=== PATIENT | female | born 1965 | race Caucasian/White ===

== ENCOUNTER 2016-11-26 13:23 | Emergency (ER) | payer BC ==
[~2016-11-26] VITALS: Ht 170.2 cm; Wt 65.7 kg
[~2016-11-26 13:23] MED LIST: GABA1CAP4 PO
[2016-11-26 13:27] VITALS: TEMP 36.9; Ht 170.2 cm; Wt 65.7 kg
[2016-11-26] MEDS ORDERED: SODIUM CHLORIDE 0.9% 1000ML 1,000 ML IV STA (14:54)
[2016-11-26] MEDS ORDERED: GI COCKTAIL PO STA (14:54)
[2016-11-26] MEDS ORDERED: METOCLOPRAMIDE HCL INJ 5 MG/ML 2 ML VIAL IV STA (14:54)
[2016-11-26] MEDS ORDERED: SUCRALFATE 1 GM TAB PO STA (14:54)
[2016-11-26] MEDS ORDERED: FAMOTIDINE 20 MG TAB PO STA (14:54)
--- NOTE | 2016-11-26 14:57 | EMERGENCY ROOM VISIT NOTE ---
History Report prepared by Jasonibguanako: Radha Steh Under the Supervision of: Dr. Velasquez Veliz M.D. First contact with patient: 14:40 Chief Complaint: ABDOMINAL PAIN Stated Complaint: APPENDICITIS Nursing Triage Summary: abdominal cramping with increased pain as the day goes on. Pain is in the umbilical area and some times goes towards the hips. she states" the pressure feels like every thing is going to fall out". no vomiting poor appetite and when she does eat she gets nauseated. History of Present Illness The patient is a 51 year old female who presents to the Emergency Room with complaints of worsening constant abdominal pain beginning 5 days prior to arrival. The patient states that the pain begins in the umbilical area and radiates upward and laterally. She describes the pain as a dull constant pain. The pain worsens as the day goes on. She is experiencing decreased appetite and nausea. She has normal bowel movements. The patient denies vomiting or previous abdominal surgeries. She smokes about 1 pack a day. Source of History: patient Onset: 5 days [employer] Position: abdomen (umbilical) Quality: dull Timing: constant, worsening Associated Symptoms: + nausea, No vomiting Note: The patient is having normal bowel movements and decreased appetite. Review of Systems See HPI for pertinent positives & negatives. A total of 10 systems reviewed and were otherwise negative. Past Medical & Surgical Medical Problems: (1) No known health problems Family History Cancer Diabetes mellitus Gallbladder disease Heart disease Hypertension Kidney disease Kidney stones Lung disease Social History Smoking Status: Current Every Day Smoker Alcohol Use: occasionally Drug Use: none Marital Status: Housing Status: lives with family Occupation Status: employed Current/Historical Medications Scheduled Famotidine (Pepcid), 40 MG PO HS Sulfa/Trimethoprim (Bactrim Ds 800MG/160MG), 1 TAB PO BID Allergies Coded Allergies: Amoxicillin (Unverified Allergy, Intermediate, HIVES, 11/26/16) Penicillins (Verified Allergy, Unknown, HIVES, SWELLING OF FACE AND NECK, 11/26/16) Physical Exam Vital Signs Date Time Temp Pulse Resp B/P (MAP) Pulse Ox O2 Delivery O2 Flow Rate FiO2 11/26/16 18:12 71 18 110/67 97 11/26/16 15:45 98 Room Air 11/26/16 15:41 89 18 129/53 98 Room Air 11/26/16 13:27 36.9 99 18 129/90 96 Room Air Physical Exam GENERAL: Patient is a healthy-appearing well-nourished female HEAD: Normocephalic atraumatic EYES: Ocular movements intact pupils equal and react to light OROPHARYNX mucous membranes are moist no exudates present no erythema or edema present NECK: Supple no nuchal rigidity CHEST: Good equal expansion LUNGS: Clear and equal to auscultation CARDIAC: Normal S1 and S2 ABDOMEN: Soft, tender in right upper quadrant and left upper quadrant, no guarding BACK: No CVA tenderness EXTREMITIES: No pain upon palpation normal muscle strength in all groups no clubbing cyanosis or edema NEURO: Patient is following commands and answering questions appropriately. Alert and oriented x3 Cranial Nerves 2-12 grossly intact Medical Decision & Procedures ER Provider Diagnostic Interpretation: Radiology results as stated below per my review and radiologist interpretation: CHEST ONE VIEW PORTABLE CLINICAL HISTORY: Atypical chest pain COMPARISON STUDY: 01/15/2015 FINDINGS: The cardiac and mediastinal contours are normal. There is no evidence of focal pulmonary consolidation. There is no evidence of failure. No pleural effusions are visualized.[ IMPRESSION: No active disease in the chest. Electronically signed by: Prashant Saab M.D. 11/26/2016 3:28 PM Dictated Date/Time: 11/26/2016 3:27 PM ABDOMEN AND PELVIS CT WITH IV AND ORAL CONTRAST CT DOSE: 274.57 mGy.cm HISTORY: Pain. Nausea. Pt c/o RUQ abd pain TECHNIQUE: Multiaxial CT images of the abdomen and pelvis were performed following the use of intravenous and oral contrast. COMPARISON STUDY: None. FINDINGS: The lung bases are clear. The liver, spleen, gallbladder, pancreas, kidneys, and adrenal glands are within normal limits. No bowel wall thickening or obstruction. The pelvic organs are unremarkable. No suspicious lytic or blastic osseous lesions. IMPRESSION: No significant abnormality identified within the abdomen or pelvis. Electronically signed by: Alejo Nicole M.D. 11/26/2016 5:59 PM Dictated Date/Time: 11/26/2016 5:55 PM ABDOMINAL ULTRASOUND, RIGHT UPPER QUADRANT HISTORY: Pain. Nausea. Pt c/o RUq abd pain. COMPARISON: None. FINDINGS: Pancreas: The pancreas demonstrates a normal echotexture. Liver: Unremarkable. Gallbladder: No gallbladder wall thickening. No gallstones. CBD: 4 mm Right kidney: No hydronephrosis. IMPRESSION: No significant abnormality identified within the within the right upper quadrant. Electronically signed by: Alejo Nicole M.D. 11/26/2016 4:20 PM Dictated Date/Time: 11/26/2016 4:19 PM Laboratory Results 11/26/16 14:45 Red Blood Count 4.98, Mean Corpuscular Volume 94.0, Mean Corpuscular Hemoglobin 31.7, Mean Corpuscular Hemoglobin Concent 33.8, Mean Platelet Volume 11.3, Neutrophils (%) (Auto) 71.7, Lymphocytes (%) (Auto) 20.0, Monocytes (%) (Auto) 6.1, Eosinophils (%) (Auto) 1.8, Basophils (%) (Auto) 0.2, Neutrophils # (Auto) 7.06, Lymphocytes # (Auto) 1.97, Monocytes # (Auto) 0.60, Eosinophils # (Auto) 0.18, Basophils # (Auto) 0.02 11/26/16 14:45 Test 11/26/16 14:45 11/26/16 15:00 White Blood Count 9.85 K/uL (4.8-10.8) Red Blood Count 4.98 M/uL (4.2-5.4) Hemoglobin 15.8 g/dL (12.0-16.0) Hematocrit 46.8 % (37-47) Mean Corpuscular Volume 94.0 fL (80-100) Mean Corpuscular Hemoglobin 31.7 pg (25-34) Mean Corpuscular Hemoglobin Concent 33.8 g/dl (32-36) Platelet Count 202 K/uL (130-400) Mean Platelet Volume 11.3 fL (7.4-10.4) Neutrophils (%) (Auto) 71.7 % Lymphocytes (%) (Auto) 20.0 % Monocytes (%) (Auto) 6.1 % Eosinophils (%) (Auto) 1.8 % Basophils (%) (Auto) 0.2 % Neutrophils # (Auto) 7.06 K/uL (1.4-6.5) Lymphocytes # (Auto) 1.97 K/uL (1.2-3.4) Monocytes # (Auto) 0.60 K/uL (0.11-0.59) Eosinophils # (Auto) 0.18 K/uL (0-0.5) Basophils # (Auto) 0.02 K/uL (0-0.2) RDW Standard Deviation 43.4 fL (36.4-46.3) RDW Coefficient of Variation 12.7 % (11.5-14.5) Immature Granulocyte % (Auto) 0.2 % Immature Granulocyte # (Auto) 0.02 K/uL (0.00-0.02) Anion Gap 9.0 mmol/L (3-11) Est Creatinine Clear Calc Drug Dose 76.2 ml/min Estimated GFR () 92.6 Estimated GFR (Non- 79.9 BUN/Creatinine Ratio 11.3 (10-20) Calcium Level 9.6 mg/dl (8.5-10.1) Total Bilirubin 0.5 mg/dl (0.2-1) Direct Bilirubin 0.1 mg/dl (0-0.2) Aspartate Amino Transf (AST/SGOT) 22 U/L (15-37) Alanine Aminotransferase (ALT/SGPT) 29 U/L (12-78) Alkaline Phosphatase 89 U/L (45-117) Total Creatine Kinase 80 U/L (26-192) Creatine Kinase MB 0.9 ng/ml (0.5-3.6) Creatine Kinase MB Ratio 1.1 (0-3.0) Troponin I < 0.015 ng/ml (0-0.045) Total Protein 8.0 gm/dl (6.4-8.2) Albumin 3.9 gm/dl (3.4-5.0) Lipase 150 U/L (73-393) Urine Color YELLOW Urine Appearance CLEAR (CLEAR) Urine pH 6.0 (4.5-7.5) Urine Specific [place] 1.013 (1.000-1.030) Urine Protein NEG (NEG) Urine Glucose (UA) NEG (NEG) Urine Ketones NEG (NEG) Urine Occult Blood NEG (NEG) Urine Nitrite NEG (NEG) Urine Bilirubin NEG (NEG) Urine Urobilinogen NEG (NEG) Urine Leukocyte Esterase MODERATE (NEG) Urine WBC (Auto) 10-30 /hpf (0-5) Urine RBC (Auto) 0-4 /hpf (0-4) Urine Hyaline Casts (Auto) 1-5 /lpf (0-5) Urine Epithelial Cells (Auto) >30 /lpf (0-5) Urine Bacteria (Auto) 1+ (NEG) Urine Test NEG (NEG) Labs reviewed by ED physician. Medications Administered Medications (Trade) Dose Ordered Sig/Nhung Route Start Time Stop Time Status Last Admin Dose Admin Famotidine (Pepcid Tab) 20 mg NOW STAT PO 11/26/16 14:54 11/26/16 14:57 DC 11/26/16 15:40 20 MG Sucralfate (Carafate Tab) 1 gm NOW STAT PO 11/26/16 14:54 11/26/16 14:57 DC 11/26/16 15:40 1 GM Sodium Chloride 1,000 ml @ 999 mls/hr Q1H1M STAT IV 11/26/16 14:54 11/26/16 15:54 DC 11/26/16 15:41 999 MLS/HR Metoclopramide HCl (Reglan Inj) 10 mg NOW STAT IV 11/26/16 14:54 11/26/16 14:57 DC 11/26/16 15:40 10 MG Al Hydroxide/Mg Hydroxide (Maalox Susp) 30 ml STK-MED ONCE .ROUTE 11/26/16 15:32 11/26/16 15:33 DC 11/26/16 15:41 30 ML Lidocaine HCl (Viscous Lidocaine 2% Soln) 20 ml STK-MED ONCE .ROUTE 11/26/16 15:32 11/26/16 15:33 DC 11/26/16 15:41 20 ML Ceftriaxone Sodium (Rocephin Inj) 1 gm NOW STAT IV 11/26/16 16:22 11/26/16 16:24 DC 11/26/16 16:54 1 GM Trimethoprim/ Sulfamethoxazole (Septra Ds 800/ 160MG Tab) 1 tab NOW STAT PO 11/26/16 16:22 11/26/16 16:24 DC 11/26/16 16:54 1 TAB ECG Indication: abdominal pain Rate (beats per minute): 82 Rhythm: normal sinus Findings: no acute ischemic change, no ectopy ED Course 1450: Past medical records reviewed. The patient was evaluated in room B10. A complete history and physical examination was performed. 1454: Reglan Inj 10 mg IV, Sodium Chloride 1,000 ml @ 999 mls/hr IV, Carafate Tab 1 gm PO, Pepcid Tab 20 mg PO, GI Cocktail 24 ml PO. 1622: Septra Ds 800/ 160 MG Tab 1 tab PO, Rocephin Inj 1 gm IV. 1820: Upon reexamination the patient is hemodynamically stable. I discussed results and treatment plan with the patient. She verbalizes agreement and understanding. The patient is ready for discharge. Medical Decision Differential diagnosis: Etiologies such as appendicitis, diverticulitis, PUD, biliary pathology, UTI, pancreatitis, obstruction, mesenteric ischemia, aortic pathology, infections, inflammatory bowel disease, renal colic, as well as others were entertained. Medication Reconciliation: I attest that I have personally reviewed the patient' s current medication list Blood Pressure Screening: Patient was found to have normal blood pressure on screening and does not require follow up. This is a 51-year-old female who presents emergency department complaining of bilateral upper abdominal pain. Based on the patient's symptoms an EKG was obtained along with CK-MB and troponin fraction. These were all found to be normal. The patient was given a GI cocktail, Pepcid and Carafate. Ultrasound of her gallbladder does not show any acute process. She was sent for CAT scan of the abdomen and pelvis which did not show any acute process. I do believe that the patient is safe enough to be discharged from the emergency department. Serial abdominal examinations were performed on the patient in the emergency department and at no time did the patient exhibit a surgical abdomen. The patient is going to attempt a clear liquid diet for the next 48 hours and I do believe is well enough to be discharged home for follow-up with gastroenterology. She is going to take 5 mL some Maalox before every meal and was written for prescription for Pepcid. Patient was in agreement with the treatment plan. Impression Primary Impression: Abdominal pain Scribe Attestation The scribe's documentation has been prepared under my direction and personally reviewed by me in its entirety. I confirm that the note above accurately reflects all work, treatment, procedures, and medical decision making performed by me. Departure Information Dispostion Home / Self-Care Prescriptions Sulfa/Trimethoprim (Bactrim Ds 800MG/160MG) Tab 1 TAB PO BID for 5 Days, #10 TAB Prov: Velasquez Veliz MD 11/26/16 Famotidine (Pepcid) 40 Mg Tab 40 MG PO HS for 30 Days, #30 TAB Prov: Velasquez Veliz MD 11/26/16 Referrals George Calix M.D. (PCP) Forms Call Back Authorization, HOME CARE DOCUMENTATION FORM, IMPORTANT VISIT INFORMATION, School Instructions, Work Instructions Patient Instructions Abdominal Pain, My [facility] Additional Instructions Follow up with DR Zelaya's office Clear liquid diet next 48 hours Take 5 ml Maalox before every meal and at bedtime Culture results are usually available in approx 48 hours You have been examined and treated today on an emergency basis only. This is not a substitute for, or an effort to provide, complete comprehensive medical care. It is impossible to recognize and treat all injuries or illnesses in a single emergency department visit. It is therefore important that you follow up closely with Dr Calix. Call as soon as possible for an appointment. Thank you for your time and consideration. I look forward to speaking with you again soon. Please don't hesitate to call us if you have any questions. Problem Qualifiers Primary Impression: Abdominal pain Abdominal location: right upper quadrant Qualified Codes: R10.11 - Right upper quadrant pain
[2016-11-26 15:07] LABS: BASO % 0.2 %; BASO ABS # 0.02 K/uL (0-0.2); COMPLETE YES; EOS % 1.8 %; HEMATOCRIT 46.8 % (37-47); IG% 0.2 %; LYMPH ABS # 1.97 K/uL (1.2-3.4); MEAN CORPUSCULAR HEMOGLOBIN 31.7 pg (25-34); MEAN CORPUSCULAR HGB CONC 33.8 g/dl (32-36); MEAN PLATELET VOLUME 11.3 fL (7.4-10.4); MONO % 6.1 %; NEUT % 71.7 %; PLATELET COUNT 202 K/uL (130-400); RED BLOOD COUNT 4.98 M/uL (4.2-5.4); WHITE BLOOD COUNT 9.85 K/uL (4.8-10.8)
[2016-11-26 15:27] LABS: ALT/SGPT 29 U/L (12-78); BLOOD UREA NITROGEN 10 mg/dl (7-18); BUN/CREATININE RATIO 11.3 (10-20); CALCIUM 9.6 mg/dl (8.5-10.1); CARBON DIOXIDE 26 mmol/L (21-32); CHLORIDE 105 mmol/L (98-107); CREATININE 0.84 mg/dl (0.60-1.20); GLUCOSE 87 mg/dl (70-99); POTASSIUM 3.7 mmol/L (3.5-5.1); SODIUM 140 mmol/L (136-145)
--- NOTE | 2016-11-26 15:30 | DIAGNOSTIC IMAGING REPORT ---
CHEST ONE VIEW PORTABLE CLINICAL HISTORY: Atypical chest pain COMPARISON STUDY: 01/15/2015 FINDINGS: The cardiac and mediastinal contours are normal. There is no evidence of focal pulmonary consolidation. There is no evidence of failure. No pleural effusions are visualized.[ IMPRESSION: No active disease in the chest. Electronically signed by: Prashant Saab M.D. 11/26/2016 3:28 PM Dictated Date/Time: 11/26/2016 3:27 PM
[2016-11-26] MEDS ORDERED: LIDOCAINE HCL 2% VISC SOLN 20 ML UDC ONE (15:32)
[2016-11-26] MEDS ORDERED: ALUMINUM/MAGNESIUM SUSP 30 ML UDC ONE (15:32)
[2016-11-26 15:34] LABS: ALKALINE PHOSPHATASE 89 U/L (45-117); AST/SGOT 22 U/L (15-37); CKMB/CK RATIO 1.1 (0-3.0)
[2016-11-26 15:45] VITALS: O2SAT 98
[2016-11-26 16:14] LABS: URINE APPEARANCE CLEAR (CLEAR); URINE BILIRUBIN NEG (NEG); URINE COLOR YELLOW; URINE EPITHELIAL CELL AUTO >30 /lpf (0-5); URINE NITRITE NEG (NEG); URINE SPECIFIC GRAVITY 1.013 (1.000-1.030); UROBILINOGEN NEG (NEG); ZZUR CULT IF INDIC CLEAN CATCH YES
[2016-11-26 16:17] LABS: MANUAL MICROSCOPIC REQUIRED? NO; REVIEW REQ? NO
[2016-11-26] MEDS ORDERED: CEFTRIAXONE SOD INJ 1 GM ADDVIAL IV STA (16:22)
[2016-11-26] MEDS ORDERED: SULFAMETHOXAZOLE/TRIMETHOPRIM DS 800/160MG TAB PO STA (16:22)
--- NOTE | 2016-11-26 16:22 | DIAGNOSTIC IMAGING REPORT ---
ABDOMINAL ULTRASOUND, RIGHT UPPER QUADRANT HISTORY: Pain. Nausea. Pt c/o RUq abd pain. COMPARISON: None. FINDINGS: Pancreas: The pancreas demonstrates a normal echotexture. Liver: Unremarkable. Gallbladder: No gallbladder wall thickening. No gallstones. CBD: 4 mm Right kidney: No hydronephrosis. IMPRESSION: No significant abnormality identified within the within the right upper quadrant. Electronically signed by: Alejo Nicole M.D. 11/26/2016 4:20 PM Dictated Date/Time: 11/26/2016 4:19 PM
--- NOTE | 2016-11-26 18:00 | DIAGNOSTIC IMAGING REPORT ---
ABDOMEN AND PELVIS CT WITH IV AND ORAL CONTRAST CT DOSE: 274.57 mGy.cm HISTORY: Pain. Nausea. Pt c/o RUQ abd pain TECHNIQUE: Multiaxial CT images of the abdomen and pelvis were performed following the use of intravenous and oral contrast. COMPARISON STUDY: None. FINDINGS: The lung bases are clear. The liver, spleen, gallbladder, pancreas, kidneys, and adrenal glands are within normal limits. No bowel wall thickening or obstruction. The pelvic organs are unremarkable. No suspicious lytic or blastic osseous lesions. IMPRESSION: No significant abnormality identified within the abdomen or pelvis. Electronically signed by: Alejo Nicole M.D. 11/26/2016 5:59 PM Dictated Date/Time: 11/26/2016 5:55 PM
[2016-11-26 18:12] VITALS: BP 110/67; PULSE 71; O2SAT 97
[2016-11-26] MEDS ORDERED: FAMO40TA6 PO (18:19)
[2016-11-26] MEDS ORDERED: SULF800T23 PO (18:24)
== END 2016-11-26 18:25 | disposition home or self-care (01) ==
LOC: C.EDB 13:25
DX: R10.11 Right upper quadrant pain (principal); F17.200 Nicotine dependence, unspecified, uncomplicated; Z83.3 Family history of diabetes mellitus; Z82.49 Family history of ischemic heart disease and other diseases of the circulatory system; Z84.1 Family history of disorders of kidney and ureter